=== PATIENT | male | born 2000 | race Two or more races ===

== ENCOUNTER 2023-02-20 18:29 | Emergency (ER) | payer SELFPAY ==
[~2023-02-20] VITALS: Ht 175.3 cm; Wt 100.8 kg
[2023-02-20] MEDS ORDERED: ONDANSETRON ODT 4 MG TAB PO ONE (19:15)
[2023-02-20] MEDS ORDERED: KETOROLAC TROMETH 60MG/2ML VIAL IM ONE (19:15)
[2023-02-20 19:25] LABS: Basophils # (auto) 0.1 10 ^3/uL (0-0.2); Basophils % (auto) 0.7 % (0.0-2.0); Eosinophils # (auto) 0.7 10 ^3/uL (0-0.8); Hematocrit 50.4 % (41.0-53.0); Hemoglobin 17.6 g/dL (13.5-17.5); Lymphocytes # (auto) 1.1 10 ^3/uL (0.4-5.4); Mean Corpuscular Hemoglobin 31.9 pg (28.0-32.0); Mean Corpuscular Hgb Conc. 34.9 g/dL (32.0-36.0); Mean Corpuscular Volume 91.2 fL (80.0-100.0); Monocytes # (auto) 1.2 10 ^3/uL (0-1.3); Monocytes % (auto) 10.8 % (0.0-12.0); Neutrophils # (auto) 8.2 10 ^3/uL (1.6-8.6); Neutrophils % (auto) 72.5 % (37.0-80.0); Nucleated Red Blood Cells % 0.2 %; Red Blood Cells 5.53 10^6/uL (4.5-5.90); Red Cell Distribution Width 13.6 % (11.8-14.3); White Blood Cell 11.4 10^3/uL (4.4-10.8)
[2023-02-20 19:44] LABS: Alanine Aminotransferase 500 U/L (7-40); Albumin 5.2 g/dL (3.2-4.8); Alkaline Phosphatase 159 U/L (46-116); Anion Gap 11 (5-15); Aspartate Aminotransferase 144 U/L (13-40); BUN/Creatinine Ratio 10.3 (10.0-20.0); Blood Urea Nitrogen 12 mg/dL (9-23); Calcium 9.9 mg/dL (8.7-10.4); Carbon Dioxide 25 mmol/L (20-30); Chloride 98 mmol/L (98-107); Glucose 110 mg/dL (74-106); Potassium 3.8 mmol/L (3.5-5.1); Sodium 134 mmol/L (136-145)
[2023-02-20 19:45] LABS: Bilirubin, Total 5.2 mg/dL (0.2-1.0); Total Protein 7.9 g/dL (5.7-8.2)
[2023-02-20 19:52] LABS: Lipase 1876 U/L (12-53)
[2023-02-20] MEDS ORDERED: ZOFR4T PO (21:09)
[2023-02-20] MEDS ORDERED: NALT50TA27 PO (21:09)
[2023-02-20 22:53] VITALS: BP 152/105; PULSE 104; RESP 18; TEMP 98; O2SAT 96
== END 2023-02-20 23:19 | disposition home or self-care (01) ==
LOC: ER 18:29
DX: K85.20 Alcohol induced acute pancreatitis without necrosis or infection (principal); K70.10 Alcoholic hepatitis without ascites
CPT/HCPCS: 36415; 76705; 80053; 83690; 85025; 96372; 99285; J1885